=== PATIENT | female | born 1955 | race Caucasian/White ===

== ENCOUNTER 2023-12-14 07:29 | Emergency (ER) | payer MEDICARE, OTHER | END 2023-12-14 08:09 | disposition home or self-care (01) | LOC: DL.ED 07:29 | DX: H00.011 Hordeolum externum right upper eyelid (principal); H10.9 Unspecified conjunctivitis; Z87.891 Personal history of nicotine dependence | CPT/HCPCS: 99283 ==

== ENCOUNTER 2025-02-03 07:43 | Emergency (ER) | payer MEDICARE ==
[2025-02-03] MEDS ORDERED: Sodium Chloride 0.9% 10 ML Syringe FLUSH PRN (08:06)
[2025-02-03] MEDS: Lactated Ringers 1,000 ML IV SCH (08:10)
[2025-02-03] MEDS: Ondansetron 4 MG/2 ML SDV IVPUSH ONE (08:12)
[2025-02-03 08:13] LABS: PLATELET COUNT,PLT 326 10^3/uL (150-450); RED BLOOD CELL COUNT 5.29 10^6/uL (4.2-5.4); WHITE BLOOD CELL COUNT,WBC 15.2 10^3/uL (5.0-10.0)
[2025-02-03 08:16] LABS: BASOPHILS PERCENT AUTO 0.1 % (0.0-1.0); EOSINOPHILS PERCENT AUTO 0.3 % (1.0-3.0); LYMPHOCYTES PERCENT AUTO 13.5 % (20.5-50.1); MONOCYTES PERCENT AUTO 7.1 % (2-8); NEUTROPHILS PERCENT AUTO 79.0 % (42.2-75.2)
[2025-02-03 08:20] LABS: INR 1.0 (0.9-1.2)
[2025-02-03 08:26] LABS: A/G RATIO 0.8; ALANINE AMINOTRANSFERASE,ALT 23.0 U/L (14-59); ASPARTATE AMNIOTRANSFERASE,AST 15.0 U/L (15-37); BILIRUBIN TOTAL 0.6 mg/dL (0.2-1.0); BLOOD UREA NITROGEN,BUN 13.0 mg/dL (7-18); CARBON DIOXIDE,CO2 23.0 mmol/L (21-32); CHLORIDE,CL 100.0 mmol/L (98-107); CREATININE 1.55 mg/dL (0.55-1.02); EST CRCL DRUG DOSING (CG) 25.3 mL/min; GLUCOSE RANDOM 112.0 mg/dL (70-99); POTASSIUM,K 4.5 mmol/L (3.5-5.1); PROTEIN TOTAL,TP 8.3 g/dL (6.4-8.2); SODIUM,NA 136.0 mmol/L (136-145)
[2025-02-03 08:28] LABS: ESTIMATED GFR 36.0 mL/min (>=60)
[2025-02-03 08:40] LABS: BAND PERCENT MAN 2 %; LYMPHOCYTES PERCENT MAN 14 % (20-50); MONOCYTES PERCENT MAN 7 % (2-8); SEG NEUTROPHILS PERCENT MAN 77 % (42-75)
[2025-02-03] MEDS: Magnesium Sulfate 2 GM/50 mL 2 GM in Premix Bag 1 BAG IV ONE (08:40)
== END 2025-02-03 09:45 | disposition home or self-care (01) ==
LOC: DL.ED 07:43
DX: R11.2 Nausea with vomiting, unspecified (principal); E78.00 Pure hypercholesterolemia, unspecified; I10 Essential (primary) hypertension; Z87.891 Personal history of nicotine dependence; Z79.899 Other long term (current) drug therapy
CPT/HCPCS: 36415; 80053; 83690; 83735; 84484; 85025; 85610; 96365; 96375; 99282; 99284; A9270; J2405; J3475; J7120

== ENCOUNTER 2025-02-22 15:30 | Emergency (ER) | payer MEDICARE ==
[2025-02-22 16:13] LABS: PLATELET COUNT,PLT 377 10^3/uL (150-450); RED BLOOD CELL COUNT 5.68 10^6/uL (4.2-5.4); WHITE BLOOD CELL COUNT,WBC 13.3 10^3/uL (5.0-10.0)
[2025-02-22] MEDS: Ondansetron 4 MG/2 ML SDV IVPUSH ONE (16:13)
[2025-02-22 16:20] LABS: BASOPHILS PERCENT AUTO 0.2 % (0.0-1.0); EOSINOPHILS PERCENT AUTO 0.4 % (1.0-3.0); LYMPHOCYTES PERCENT AUTO 11.6 % (20.5-50.1); MONOCYTES PERCENT AUTO 9.3 % (2-8); NEUTROPHILS PERCENT AUTO 78.5 % (42.2-75.2)
[2025-02-22 16:30] LABS: LYMPHOCYTES PERCENT MAN 12 % (20-50); MONOCYTES PERCENT MAN 7 % (2-8); SEG NEUTROPHILS PERCENT MAN 81 % (42-75)
[2025-02-22 16:32] LABS: ALANINE AMINOTRANSFERASE,ALT 35.0 U/L (14-59); ASPARTATE AMNIOTRANSFERASE,AST 23.0 U/L (15-37); BILIRUBIN TOTAL 0.7 mg/dL (0.2-1.0); BLOOD UREA NITROGEN,BUN 31.0 mg/dL (7-18); CARBON DIOXIDE,CO2 25.0 mmol/L (21-32); CHLORIDE,CL 102.0 mmol/L (98-107); CREATININE 2.76 mg/dL (0.55-1.02); EST CRCL DRUG DOSING (CG) 14.21 mL/min; GLUCOSE RANDOM 144.0 mg/dL (70-99); PROTEIN TOTAL,TP 8.6 g/dL (6.4-8.2); SODIUM,NA 140.0 mmol/L (136-145)
[2025-02-22 16:34] LABS: A/G RATIO 0.56; ESTIMATED GFR 18.0 mL/min (>=60); POTASSIUM,K 5.4 mmol/L (3.5-5.1)
[2025-02-22] MEDS: Take Home: Ondansetron 4 MG Tab.DIS, 5 Tab Pack PO ONE (17:40)
== END 2025-02-22 18:59 | disposition home or self-care (01) ==
LOC: DL.ED 15:30
DX: R11.10 Vomiting, unspecified (principal); I12.9 Hypertensive chronic kidney disease with stage 1 through stage 4 chronic kidney disease, or unspecified chronic kidney disease; N18.9 Chronic kidney disease, unspecified; I10 Essential (primary) hypertension; E78.00 Pure hypercholesterolemia, unspecified; Z79.899 Other long term (current) drug therapy; Z90.710 Acquired absence of both cervix and uterus
CPT/HCPCS: 36415; 80053; 85025; 96361; 96374; 99284; J2405; J7030; Q0162

== ENCOUNTER 2025-03-28 11:23 | Emergency (ER) | payer MEDICARE ==
[2025-03-28] MEDS ORDERED: Sodium Chloride 0.9% 10 ML Syringe FLUSH PRN (11:58)
[2025-03-28 12:38] LABS: PLATELET COUNT,PLT 367 10^3/uL (150-450); RED BLOOD CELL COUNT 4.98 10^6/uL (4.2-5.4); WHITE BLOOD CELL COUNT,WBC 11.7 10^3/uL (5.0-10.0)
[2025-03-28 12:46] LABS: BASOPHILS PERCENT AUTO 0.2 % (0.0-1.0); EOSINOPHILS PERCENT AUTO 1.1 % (1.0-3.0); LYMPHOCYTES PERCENT AUTO 14.0 % (20.5-50.1); MONOCYTES PERCENT AUTO 9.4 % (2-8); NEUTROPHILS PERCENT AUTO 75.3 % (42.2-75.2)
[2025-03-28 12:56] LABS: INR 1.0 (0.9-1.2); PTT,PARTIAL THROMBOPLSTIN TIME 26.0 SEC (22.0-34.0)
[2025-03-28 12:58] LABS: ALANINE AMINOTRANSFERASE,ALT 34 U/L (14-59); ASPARTATE AMNIOTRANSFERASE,AST 16 U/L (15-37); BILIRUBIN TOTAL 0.5 mg/dL (0.2-1.0); BLOOD UREA NITROGEN,BUN 22 mg/dL (7-18); CARBON DIOXIDE,CO2 27 mmol/L (21-32); CHLORIDE,CL 104 mmol/L (98-107); CREATININE 1.52 mg/dL (0.55-1.02); GLUCOSE RANDOM 108 mg/dL (70-99); POTASSIUM,K 4.6 mmol/L (3.5-5.1); PROTEIN TOTAL,TP 7.4 g/dL (6.4-8.2); SODIUM,NA 141 mmol/L (136-145)
[2025-03-28 12:59] LABS: A/G RATIO 0.54; ESTIMATED GFR 37 mL/min (>=60)
[2025-03-28 13:01] LABS: LACTIC ACID 1.0 mmol/L (0.4-2.0)
[2025-03-28] MEDS: Iopamidol 612 MG/ML 100 ML Bottle IVPUSH ONE (13:04)
[2025-03-28 13:08] LABS: BAND PERCENT MAN 1 %; EOSINOPHILS PERCENT MAN 1 % (1-3); LYMPHOCYTES PERCENT MAN 19 % (20-50); MONOCYTES PERCENT MAN 7 % (2-8); SEG NEUTROPHILS PERCENT MAN 72 % (42-75)
[2025-03-28 16:33] LABS: BASOPHILS PERCENT AUTO 0.1 % (0.0-1.0); EOSINOPHILS PERCENT AUTO 1.3 % (1.0-3.0); LYMPHOCYTES PERCENT AUTO 17.0 % (20.5-50.1); MONOCYTES PERCENT AUTO 10.7 % (2-8); NEUTROPHILS PERCENT AUTO 70.9 % (42.2-75.2); PLATELET COUNT,PLT 382 10^3/uL (150-450); RED BLOOD CELL COUNT 5.14 10^6/uL (4.2-5.4); WHITE BLOOD CELL COUNT,WBC 10.3 10^3/uL (5.0-10.0)
[2025-03-28 16:46] LABS: BLOOD UREA NITROGEN,BUN 22 mg/dL (7-18); CARBON DIOXIDE,CO2 27 mmol/L (21-32); CHLORIDE,CL 103 mmol/L (98-107); CREATININE 1.47 mg/dL (0.55-1.02); GLUCOSE RANDOM 106 mg/dL (70-99); POTASSIUM,K 5.1 mmol/L (3.5-5.1); SODIUM,NA 140 mmol/L (136-145)
[2025-03-28 16:51] LABS: ESTIMATED GFR 39 mL/min (>=60)
[2025-03-28 16:55] LABS: LACTIC ACID 0.9 mmol/L (0.4-2.0)
[2025-03-28] MEDS: Ondansetron 4 MG/2 ML SDV IVPUSH ONE (17:35)
== END 2025-03-28 17:58 ==
LOC: DL.ED 11:23
DX: K92.2 Gastrointestinal hemorrhage, unspecified (principal); I10 Essential (primary) hypertension; E78.00 Pure hypercholesterolemia, unspecified; K56.1 Intussusception; N28.9 Disorder of kidney and ureter, unspecified; D27.1 Benign neoplasm of left ovary; Z79.899 Other long term (current) drug therapy; Z90.710 Acquired absence of both cervix and uterus
CPT/HCPCS: 36415; 74177; 80048; 80053; 82271; 82272; 83605; 85025; 85610; 85730; 86140; 96361; 96374; 99285; J2405; J7030; Q9967

== ENCOUNTER 2025-05-27 13:28 | Emergency (ER) | payer MEDICARE ==
[2025-05-27] MEDS ORDERED: Sodium Chloride 0.9% 10 ML Syringe FLUSH PRN (13:47)
[2025-05-27 14:13] LABS: RED BLOOD CELL COUNT 3.38 10^6/uL (4.2-5.4)
[2025-05-27 14:17] LABS: WHITE BLOOD CELL COUNT,WBC 1.3 10^3/uL (5.0-10.0)
[2025-05-27 14:18] LABS: BASOPHILS PERCENT AUTO 0.7 % (0.0-1.0); EOSINOPHILS PERCENT AUTO 0.7 % (1.0-3.0); LYMPHOCYTES PERCENT AUTO 17.2 % (20.5-50.1); MONOCYTES PERCENT AUTO 11.9 % (2-8); NEUTROPHILS PERCENT AUTO 69.5 % (42.2-75.2); PLATELET COUNT,PLT 6 10^3/uL (150-450)
[2025-05-27] MEDS: Ketorolac 30 MG/ML SDV IVPUSH ONE (14:29)
[2025-05-27 14:31] LABS: ALANINE AMINOTRANSFERASE,ALT 19.0 U/L (14-59); ASPARTATE AMNIOTRANSFERASE,AST 16.0 U/L (15-37); BILIRUBIN TOTAL 1.3 mg/dL (0.2-1.0); BLOOD UREA NITROGEN,BUN 27.0 mg/dL (7-18); CARBON DIOXIDE,CO2 23.0 mmol/L (21-32); CHLORIDE,CL 104.0 mmol/L (98-107); CREATININE 1.53 mg/dL (0.55-1.02); EST CRCL DRUG DOSING (CG) 25.63 mL/min; GLUCOSE RANDOM 124.0 mg/dL (70-99); PHOSPHORUS 1.6 mg/dL (2.6-4.7); POTASSIUM,K 3.7 mmol/L (3.5-5.1); PROTEIN TOTAL,TP 7.2 g/dL (6.4-8.2); SODIUM,NA 138.0 mmol/L (136-145)
[2025-05-27 14:32] LABS: A/G RATIO 0.64; ESTIMATED GFR 37.0 mL/min (>=60)
[2025-05-27 14:36] LABS: LACTIC ACID 2.2 mmol/L (0.4-2.0)
[2025-05-27 14:38] LABS: BAND PERCENT MAN 2 %; EOSINOPHILS PERCENT MAN 1 % (1-3); LYMPHOCYTES PERCENT MAN 14 % (20-50); MONOCYTES PERCENT MAN 13 % (2-8); SEG NEUTROPHILS PERCENT MAN 70 % (42-75)
[2025-05-27] MEDS: VANCOmycin 1.75 GM/350 ML 1.75 GM in Premix Bag 1 BAG IV ONE (14:52)
[2025-05-27] MEDS: Magnesium Sulfate 2 GM/50 mL 2 GM in Premix Bag 1 BAG IV ONE (14:53)
[2025-05-27] MEDS: Phosphorus #1 250 MG Tab PO ONE (15:15)
[2025-05-27] MEDS: Iopamidol 755 Mg/ML 100 ML Bottle IVPUSH ONE (16:50)
[2025-05-27 17:36] LABS: APPEARANCE,URINE SLIGHTLY CLOUDY (CLEAR); GLUCOSE,URINE NEGATIVE (NEGATIVE); OCCULT BLOOD,URINE TRACE-INTACT (NEGATIVE)
[2025-05-27 17:45] LABS: SQUAMOUS EPITHELIAL CELLS,UR FEW /HPF (NOT SEEN)
== END 2025-05-27 18:27 ==
LOC: DL.ED 13:28
DX: A41.9 Sepsis, unspecified organism (principal); E86.0 Dehydration; E78.00 Pure hypercholesterolemia, unspecified; I10 Essential (primary) hypertension; Z79.899 Other long term (current) drug therapy; Z90.89 Acquired absence of other organs
CPT/HCPCS: 36415; 71046; 71275; 80053; 81001; 83605; 83735; 84100; 85025; 86140; 86850; 86900; 86901; 87040; 87428; 93005; 94640; 96365; 96366; 96368; 96375; 99285; A9270; J2543; J3375; J3475; J7030; Q9967; 93010; J1885